=== PATIENT | female | born 1980 | race African-American/Black ===

== ENCOUNTER 2024-05-10 20:45 | Inpatient (IN) | payer OTHER ==
[2024-05-10] MEDS: DEXTROSE 5%-LACTATED RINGERS 1,000 ML IV SCH (22:00)
[2024-05-10 22:23] LABS: BASO % 0.6 % (0-2.0); EOS % 0.2 % (0-4.5); HEMATOCRIT 31.9 % (32.4-45.2); HEMOGLOBIN 10.2 GM/dL (10.7-15.3); LYMPH % 23.7 % (8-40); MCH 25.6 pg (25.7-33.7); MCHC 31.8 g/dl (32.0-36.0); MEAN CELL VOLUME 80.5 fl (80-96); MEAN PLT VOLUME 8.8 fl (7.5-11.1); MONO % 9.1 % (3.8-10.2); NEUT % 66.4 % (42.8-82.8); PLATELET COUNT 226 10^3/uL (134-434); RBC 3.97 M/mm3 (3.60-5.2); RDW 16.7 % (11.6-15.6); WHITE BLOOD COUNT 6.9 K/mm3 (4.0-10.0)
[2024-05-10 22:30] LABS: INR 1.01 (0.83-1.09)
[2024-05-10 22:33] LABS: ACTIVATED PTT 26.1 SECONDS (25.2-36.5)
[2024-05-10 22:50] LABS: CHLORIDE 109 mmol/L (98-107); POTASSIUM 4.3 mmol/L (3.5-5.1); SODIUM 140 mmol/L (136-145)
[2024-05-10 22:52] LABS: ANION GAP 6 mmol/L (4-13); BLOOD UREA NITROGEN 8.6 mg/dL (7-18); CALCIUM 8.7 mg/dL (8.5-10.1); CO2 25 mmol/L (21-32); GLUCOSE,RANDOM 71 mg/dL (74-106)
[2024-05-10 22:55] LABS: SGOT/AST 14 U/L (15-37); SGPT/ALT 16 U/L (13-61)
[2024-05-10 22:56] LABS: CREATININE 0.7 mg/dL (0.55-1.3)
[2024-05-10 22:57] LABS: BILIRUBIN,TOTAL 0.3 mg/dL (0.2-1); TOT PROT 6.5 g/dl (6.4-8.2)
[2024-05-10 22:58] LABS: ALK PHOS 139 U/L (45-117)
[2024-05-10 23:21] VITALS: BMI 32.9
[2024-05-10] MEDS: MISOPROSTOL 25 MCG TABLET (COMPOUNDED BY PHARMACY) PV SCH (23:35)
[2024-05-11] MEDS ORDERED: OXYTOCIN 30 UNITS in 0.9% NS 30 UNIT/500 ML INFUS.BAG IVPB ONE (09:02)
[2024-05-11] MEDS: OXYTOCIN 30 UNITS in 0.9% NS 30 UNIT/500 ML INFUS.BAG IVPB SCH (09:08)
[2024-05-11] MEDS: SODIUM CHLORIDE 1,000 ML IV STA (09:20)
[2024-05-11] MEDS: morphine SULFATE 4 MG/ML VIAL IM ONE (10:54)
[2024-05-11] MEDS ORDERED: OXYTOCIN 20 UNITS in 0.9% NS 20 UNIT/1,000 ML INFUS.BAG IV ONE (12:31)
[2024-05-11] MEDS ORDERED: OXYTOCIN 10 UNITS/ML VIAL ONE (12:51)
[2024-05-11] MEDS: OXYTOCIN 10 UNITS/ML VIAL IM ONE (12:55)
[2024-05-11] MEDS: OXYTOCIN 20 UNITS in 0.9% NS 20 UNIT/1,000 ML INFUS.BAG IV SCH (13:00)
[2024-05-11] MEDS ORDERED: LIDOCAINE HCL 1% PRESERVATIVE FREE - 30ML VIAL ONE (13:03)
[2024-05-11 13:54] LABS: CORD BASE EXCESS -5.5 mmol/L (0-2); CORD HCO3 19.6 mmHg (20-29); CORD pH 7.341 (7.14-7.44)
[2024-05-11 13:54] LABS: CORD BASE EXCESS -7.9 mmol/L (0-2); CORD HCO3 17.9 mmHg (20-29); CORD pH 7.292 (7.14-7.44)
[2024-05-11] MEDS ORDERED: BENZOCAINE 28 GM HEMORRHOIDAL OINTMENT TP PRN (13:56)
[2024-05-11] MEDS ORDERED: ACETAMINOPHEN 325 MG TABLET (FP) PO PRN (13:56)
[2024-05-11] MEDS ORDERED: WITCH HAZEL 50% (TUCKS) 40 PAD/JAR PAD TP PRN (13:56)
[2024-05-11] MEDS: FERROUS SO4 325 MG TABLET (FP) PO SCH (16:32)
[2024-05-11 16:48] VITALS: RESP 18
[2024-05-12 08:22] LABS: BASO % 0.3 % (0-2.0); EOS % 0.4 % (0-4.5); HEMATOCRIT 28.3 % (32.4-45.2); HEMOGLOBIN 9.1 GM/dL (10.7-15.3); LYMPH % 15.9 % (8-40); MCH 25.6 pg (25.7-33.7); MCHC 32.2 g/dl (32.0-36.0); MEAN CELL VOLUME 79.5 fl (80-96); MEAN PLT VOLUME 9.3 fl (7.5-11.1); MONO % 8.6 % (3.8-10.2); NEUT % 74.8 % (42.8-82.8); PLATELET COUNT 203 10^3/uL (134-434); RBC 3.56 M/mm3 (3.60-5.2); WHITE BLOOD COUNT 12.8 K/mm3 (4.0-10.0)
[2024-05-12] MEDS: PRENATAL VITAMINS W/ FOLIC ACID TABLET (FP) PO SCH (09:12)
[2024-05-12] MEDS: IBUPROFEN 600 MG TABLET (FP) PO PRN (09:12)
[2024-05-12] MEDS: DOCUSATE SODIUM 100 MG CAPSULE (FP) PO PRN (21:45)
[2024-05-13 10:59] VITALS: BP 111/70; PULSE 80; TEMP 98.2
== END 2024-05-13 14:00 | disposition home or self-care (01) | DRG 560 ==
LOC: JLDR 20:45 → J3W 05-11 16:05
PROVIDERS: ADMIT Obstetrics & Gynecology Maternal & Fetal Medicine; ATTEND Obstetrics & Gynecology Maternal & Fetal Medicine
PROC: 10E0XZZ Delivery of Products of Conception, External Approach (ICD-10-PCS; principal; 2024-05-11)
PROC: 0UQMXZZ Repair Vulva, External Approach (ICD-10-PCS; 2024-05-11)
PROC: 0W8NXZZ Division of Female Perineum, External Approach (ICD-10-PCS; 2024-05-11)
DX: O99.12 Other diseases of the blood and blood-forming organs and certain disorders involving the immune mechanism complicating childbirth (principal); D68.61 Antiphospholipid syndrome; O71.82 Other specified trauma to perineum and vulva; Z3A.39 39 weeks gestation of pregnancy; Z37.0 Single live birth
CPT/HCPCS: 36415; 36600; 59409; 80053; 82803; 85025; 85610; 85730; 86780; 86850; 86900; 86901; 88307-TC